=== PATIENT | female | born 1960 | race African-American/Black ===

== ENCOUNTER 2019-03-14 20:16 | Inpatient (IN) | payer BC ==
[~2019-03-14] VITALS: Ht 142.2 cm; Wt 61.6 kg
[~2019-03-14 20:16] MED LIST: AMLO2.5T78 PO; AMLO5TAB4 PO; AMPI2VIA IJ; ATOR10TA65 PO; ATOR40TA68 PO; CEFT2FRO2 IV; CITA20TA8 PO; CLOP75TA27 PO; CLOP75TA28 PO; LEVE250T5 PO; LEVE500V6 IVPB; RISP1TAB3 PO; VANC1PIG IV
[2019-03-14 22:30] VITALS: BP 121/87; PULSE 79; RESP 17
[2019-03-14 22:49] VITALS: Ht 142.2 cm; Wt 61.6 kg
[2019-03-15] MEDS ORDERED: ONDANSETRON 4 MG INJ IV PRN (00:30)
[2019-03-15] MEDS: ACCU-CHEK XX SCH (00:56)
[2019-03-15] MEDS ORDERED: GLUCOSE GEL 15 GRAM TUBE PO PRN ×2 (01:00)
[2019-03-15] MEDS ORDERED: DEXTROSE 50% 50 ML SYRINGE IV PRN ×2 (01:00)
[2019-03-15] MEDS ORDERED: GLUCAGON 1 MG INJ IM PRN (01:00)
[2019-03-15] MEDS ORDERED: GLUCOSE GEL 15 GRAM TUBE BUCCAL PRN (01:00)
[2019-03-15 02:00] VITALS: BP 129/86; PULSE 95; RESP 18
[2019-03-15 07:54] VITALS: BP 112/70; PULSE 86; RESP 16
[2019-03-15] MEDS: INSULIN ASPART [NOVOLOG] 3 ML PEN SC SCH ×4 (08:00→21:00)
[2019-03-15] MEDS: CLOPIDOGREL 75 MG TAB PO SCH (10:44)
[2019-03-15] MEDS: CITALOPRAM 20 MG TAB PO SCH (10:44)
[2019-03-15] MEDS: AMLODIPINE 5 MG TAB PO SCH (10:44)
[2019-03-15] MEDS: LEVETIRACETAM 500 MG TAB PO SCH ×2 (10:44→21:05)
[2019-03-15] MEDS ORDERED: POTASSIUM CHLORIDE (SR) 20 MEQ TAB PO STA (12:29)
[2019-03-15] MEDS: DEXTROSE 5%-0.45% NACL 1,000 ML IV SCH (13:00)
[2019-03-15 14:24] VITALS: BP 124/72; PULSE 80; RESP 16
[2019-03-15 20:00] VITALS: BP 118/80; PULSE 92; RESP 16
[2019-03-15] MEDS: ATORVASTATIN 10 MG TAB PO SCH (21:04)
[2019-03-15] MEDS: RISPERIDONE 1 MG TAB PO SCH (21:05)
[2019-03-16 02:00] VITALS: BP 126/93; PULSE 87; RESP 18
[2019-03-16] MEDS: ACCU-CHEK XX SCH (02:00)
[2019-03-16 07:47] VITALS: BP 135/90; PULSE 84; RESP 18
[2019-03-16] MEDS: INSULIN ASPART [NOVOLOG] 3 ML PEN SC SCH ×4 (08:00→20:43)
[2019-03-16] MEDS: DEXTROSE 5%-0.45% NACL 1,000 ML IV SCH (08:58)
[2019-03-16] MEDS: AMLODIPINE 5 MG TAB PO SCH (08:59)
[2019-03-16] MEDS: LEVETIRACETAM 500 MG TAB PO SCH (08:59)
[2019-03-16] MEDS: CITALOPRAM 20 MG TAB PO SCH (08:59)
[2019-03-16] MEDS: CLOPIDOGREL 75 MG TAB PO SCH (08:59)
[2019-03-16 14:17] VITALS: BP 126/82; PULSE 89; RESP 18
[2019-03-16] MEDS: LEVOFLOXACIN 500MG/D5W (PMX) 100 ML IVPB SCH (15:00)
[2019-03-16 20:10] VITALS: BP 113/76; PULSE 86; RESP 18
[2019-03-16] MEDS: ATORVASTATIN 10 MG TAB PO SCH (20:37)
[2019-03-16] MEDS: RISPERIDONE 1 MG TAB PO SCH (20:37)
[2019-03-16] MEDS: LEVETIRACETAM 750 MG TAB PO SCH (20:37)
[2019-03-17] MEDS: ACCU-CHEK XX SCH (02:00)
[2019-03-17 02:05] VITALS: BP 115/75; PULSE 78; RESP 18
[2019-03-17 08:00] VITALS: BP 121/80; PULSE 72; RESP 17
[2019-03-17] MEDS: INSULIN ASPART [NOVOLOG] 3 ML PEN SC SCH ×4 (08:00→20:33)
[2019-03-17] MEDS: LEVETIRACETAM 750 MG TAB PO SCH ×2 (08:52→20:29)
[2019-03-17] MEDS: CITALOPRAM 20 MG TAB PO SCH (08:52)
[2019-03-17] MEDS: CLOPIDOGREL 75 MG TAB PO SCH (08:53)
[2019-03-17] MEDS: AMLODIPINE 5 MG TAB PO SCH (08:53)
[2019-03-17 14:07] VITALS: BP 113/68; PULSE 94; RESP 19
[2019-03-17] MEDS: LEVOFLOXACIN 500MG/D5W (PMX) 100 ML IVPB SCH (14:10)
[2019-03-17] MEDS: DOCUSATE SODIUM 100 MG CAP PO SCH ×2 (15:26→20:28)
[2019-03-17 20:00] VITALS: BP 111/73; PULSE 97; RESP 18
[2019-03-17] MEDS: RISPERIDONE 1 MG TAB PO SCH (20:28)
[2019-03-17] MEDS: ATORVASTATIN 10 MG TAB PO SCH (20:29)
[2019-03-18] MEDS: ACCU-CHEK XX SCH ×2 (02:00→20:35)
[2019-03-18 02:05] VITALS: BP 106/65; PULSE 82; RESP 18
[2019-03-18 08:00] VITALS: BP 128/89; PULSE 81; RESP 20
[2019-03-18] MEDS: INSULIN ASPART [NOVOLOG] 3 ML PEN SC SCH ×4 (08:00→20:35)
[2019-03-18] MEDS: CITALOPRAM 20 MG TAB PO SCH (08:43)
[2019-03-18] MEDS: DOCUSATE SODIUM 100 MG CAP PO SCH (08:43)
[2019-03-18] MEDS: LEVETIRACETAM 750 MG TAB PO SCH (08:43)
[2019-03-18] MEDS: AMLODIPINE 5 MG TAB PO SCH (08:44)
[2019-03-18] MEDS: CLOPIDOGREL 75 MG TAB PO SCH (08:44)
[2019-03-18] MEDS ORDERED: BISACODYL 10 MG SUPP PR ONE (12:00)
[2019-03-18] MEDS ORDERED: DOCUSATE SODIUM 10 MG/ML (10ML CUP) GTB PRN (12:30)
[2019-03-18 14:00] VITALS: BP 116/80; PULSE 85; RESP 19
[2019-03-18] MEDS: LEVOFLOXACIN 500MG/D5W (PMX) 100 ML IVPB SCH (14:24)
[2019-03-18 20:00] VITALS: BP 112/80; PULSE 91; RESP 18
[2019-03-18] MEDS: LEVETIRACETAM (100 MG/ML) 5ML CUP PO SCH (20:34)
[2019-03-18] MEDS: ATORVASTATIN 10 MG TAB PO SCH (20:34)
[2019-03-18] MEDS: RISPERIDONE 1 MG TAB PO SCH (20:34)
[2019-03-19 02:00] VITALS: BP 114/79; PULSE 89; RESP 18
[2019-03-19] MEDS: INSULIN ASPART [NOVOLOG] 3 ML PEN SC SCH ×3 (07:49→17:14)
[2019-03-19 08:13] VITALS: BP 134/91; PULSE 87; RESP 18
[2019-03-19] MEDS: AMLODIPINE 5 MG TAB PO SCH (08:23)
[2019-03-19] MEDS: LEVETIRACETAM (100 MG/ML) 5ML CUP PO SCH (08:23)
[2019-03-19] MEDS: CITALOPRAM 20 MG TAB PO SCH (08:23)
[2019-03-19] MEDS: CLOPIDOGREL 75 MG TAB PO SCH (08:23)
[2019-03-19] MEDS: LEVOFLOXACIN 500MG/D5W (PMX) 100 ML IVPB SCH (13:46)
[2019-03-19 15:00] VITALS: BP 128/88; PULSE 88; RESP 18
[2019-03-19 19:48] VITALS: BP 128/83; PULSE 99; RESP 20
== END 2019-03-19 20:30 | DRG 91 ==
LOC: INTOOBSV 22:23 → PP2 22:23 → OBSVTOIN 03-15 00:30
PROVIDERS: ADMIT Internal Medicine Nephrology; ATTEND Internal Medicine Nephrology
DX: G92 Toxic encephalopathy (principal); J18.9 Pneumonia, unspecified organism; N39.0 Urinary tract infection, site not specified; J98.11 Atelectasis; E11.8 Type 2 diabetes mellitus with unspecified complications; F20.9 Schizophrenia, unspecified; E66.9 Obesity, unspecified; Z68.30 Body mass index [BMI] 30.0-30.9, adult; E87.6 Hypokalemia; F32.9 Major depressive disorder, single episode, unspecified; R33.9 Retention of urine, unspecified; H50.9 Unspecified strabismus; R56.9 Unspecified convulsions; D50.9 Iron deficiency anemia, unspecified
CPT/HCPCS: 70551; 80048; 80053; 80061; 81001; 82962; 83036; 83540; 83735; 84100; 85025; 87086; 97110; 97162; 97167; 97530; 97535; 99217; A4310; G0378; J1815; J1956; J7042